=== PATIENT | female | born 1995 | race African-American/Black ===

== ENCOUNTER 2019-04-08 18:32 | Emergency (ER) | payer BC, MEDICAID ==
[~2019-04-08] VITALS: Ht 160 cm; Wt 50.0 kg
[2019-04-08] MEDS ORDERED: ACETAMINOPHEN 500MG TABLET PO ONE (19:45)
[2019-04-08] MEDS ORDERED: IBUPROFEN 800MG TABLET PO ONE (19:45)
[2019-04-08 21:49] VITALS: BP 11/70
== END 2019-04-08 21:51 | disposition home or self-care (01) ==
LOC: ER 18:32
DX: S83.91XA Sprain of unspecified site of right knee, initial encounter (principal); M25.511 Pain in right shoulder; V43.52XA Car driver injured in collision with other type car in traffic accident, initial encounter; Y93.89 Activity, other specified; Y92.488 Other paved roadways as the place of occurrence of the external cause
CPT/HCPCS: 73030; 73560; 99283